=== PATIENT | male | born 1965 | race Asian ===

== ENCOUNTER 2023-06-20 13:57 | Emergency (ER) | payer OTHER ==
[2023-06-20 15:40] LABS: #Eosinphils 0.1 10x3/uL (0.0-0.5); #Monocytes 0.5 10x3/uL (0.0-1.1); #Neutrophils 3.6 10x3/uL (1.5-8.4); %Basophils 0.7 % (0.0-2.0); %Eosinophils 1.4 % (0.0-6.0); %Lymphocytes 23.4 % (18.0-47.0); %Monocytes 8.7 % (0.0-10.0); %Neutrophils 65.4 % (40.0-75.0); Hematocrit 41.7 % (38.8-50.0); Hemoglobin 13.2 g/dL (13.5-17.5); Mean Corpuscular HGB CONC 31.7 g/dL (32.0-36.0); Mean Corpuscular Hemoglobin 26.2 pg (27.0-33.0); Mean Corpuscular Volume 82.7 fl (81.2-95.1); Mean Platelet Volume 10.8 fl (7.4-10.4); Platelet Count 208 10x3/uL (150-450); RBC Distribution Width 13.7 % (11.5-14.5); Red Blood Cell (RBC) Count 5.04 10x6/uL (4.32-5.72); White Blood Cell (WBC) Count 5.5 10x3/uL (3.5-10.5)
[2023-06-20 15:56] LABS: ALT (SGPT) 21 U/L (8-55); AST (SGOT) 15 U/L (5-34); Albumin 4.2 g/dL (3.5-5.0); Alkaline Phosphatase 63 U/L (40-110); Anion Gap 13 mmol/L (10-20); BUN (Urea Nitrogen) 15 mg/dL (8.4-25.7); Bilirubin, Total 0.5 mg/dL (0.2-1.2); Calc. Creatinine Clearance 0 mL/min (70-130); Calcium 9.3 mg/dL (7.8-10.44); Carbon Dioxide 26 mmol/L (22-29); Chloride 103 mmol/L (98-107); Estimated GFR 97; Globulin 2.8 g/dL (2.4-3.5); Glucose 206 mg/dL (70-105); Potassium 4.7 mmol/L (3.5-5.1); Sodium 137 mmol/L (136-145)
== END 2023-06-20 16:44 | disposition home or self-care (01) ==
LOC: CSHERS 13:57
DX: L03.115 Cellulitis of right lower limb (principal)
CPT/HCPCS: 36415; 80053; 85025